=== PATIENT | female | born 1955 | race Caucasian/White ===

== ENCOUNTER 2017-01-12 14:49 | Emergency (ER) | payer OTHER ==
[2017-01-12 14:53] VITALS: TEMP 98.1; BMI 23.6
--- NOTE | 2017-01-12 16:03 | PDOC ---
History of Present Illness - General Chief Complaint: Lightheaded Stated Complaint: LIGHTHEADED Time Seen by Provider: 01/12/17 14:50 - History of Present Illness Initial Comments: 01/12/17 15:29 61 yo F with h/o opthalmic migraine, and anxiety who presents with lightheadedness. Pt. reports isolated episode of lightheadedness while standing in line at restaurant. This lasted for 10 seconds and was followed by anxiety related symptoms of palpitations, tachycardia, sweating, and tingling of distal upper extremities. She reports frequent panic attacks in the past and denies medication use. She denies LOC, dizziness, SOB, chest pain, or weakness. Following the period of lightheadedness she drank 48 oz of water, and 16 oz orange juice. In the morning she reports eating egg whites and drinking 16 oz ice coffee before her symptoms began. She endorses low carbohydrate diet. She is currently stable and no longer experiencing any symptoms. She states that she came to the ED because she did not feel safe at home d/t fear of rapid decline in health and being alone if she experienced another lightheaded event. Past History - Past Medical History Allergies/Adverse Reactions: Allergies Allergy/AdvReac Type Severity Reaction Status Date / Time No Known Allergies Allergy Verified 01/12/17 14:50 Home Medications: Ambulatory Orders Levothyroxine [Synthroid -] 50 mcg PO DAILY 08/18/13 Alprazolam [Xanax] 0.5 mg PO HS #14 tablet 08/19/15 Dextroamphetamine/Amphetamine [Adderall 10 mg Tablet] mg PO ASDIR 01/12/17 Psychiatric Problems: Yes (PANIC DISORDER) Thyroid Disease: Yes - Surgical History Appendectomy: Yes Cholecystectomy: Yes - Immunization History Immunization Up to Date: Yes - Psycho/Social/Smoking Cessation Hx Anxiety: Yes (PANIC ATTACKS) Suicidal Ideation: No Smoking Status: Yes Smoking History: Never smoked Years of Tobacco Use: 16 Have you smoked in the past 12 months: No Number of Cigarettes Smoked Daily: 0 Information on smoking cessation initiated: No Hx Alcohol Use: No Drug/Substance Use Hx: No Substance Use Type: None Review of Systems - Review of Systems Able to Perform ROS?: Yes Comments:: 01/12/17 16:03 GENERAL/CONSTITUTIONAL: No fever or chills. No weakness. HEAD, EYES, EARS, NOSE AND THROAT: No change in vision. No ear pain or discharge. No sore throat. CARDIOVASCULAR: No chest pain or shortness of breath RESPIRATORY: No cough, wheezing, or hemoptysis. GASTROINTESTINAL: No nausea, vomiting, diarrhea or constipation. GENITOURINARY: No dysuria, frequency, or change in urination. MUSCULOSKELETAL: No joint or muscle swelling or pain. No neck or back pain. SKIN: No rash NEUROLOGIC: No headache, vertigo, loss of consciousness, or change in strength/ sensation. ENDOCRINE: No increased thirst. No abnormal weight change HEMATOLOGIC/LYMPHATIC: No anemia, easy bleeding, or history of blood clots. ALLERGIC/IMMUNOLOGIC: No hives or skin allergy. *Physical Exam - Vital Signs Last Vital Signs Temp Pulse Resp BP Pulse Ox 98.1 F 116 H 20 130/88 98 01/12/17 14:50 01/12/17 14:50 01/12/17 14:50 01/12/17 14:50 01/12/17 14:50 - Physical Exam Comments: 01/12/17 16:03 GENERAL: Awake, alert, and fully oriented, in no acute distress HEAD: No signs of trauma, normocephalic, atraumatic EYES: PERRLA, EOMI, sclera anicteric, conjunctiva clear ENT: Auricles normal inspection, hearing grossly normal, nares patent, oropharynx clear without exudates. Moist mucosa NECK: Normal ROM, supple, no lymphadenopathy, JVD, or masses LUNGS: No distress, speaks full sentences, clear to auscultation bilaterally HEART: Regular rate and rhythm, normal S1 and S2, no murmurs, rubs or gallops, peripheral pulses normal and equal bilaterally. ABDOMEN: Soft, nontender, normoactive bowel sounds. No guarding, no rebound. No masses EXTREMITIES: Normal inspection, Normal range of motion, no edema. No clubbing or cyanosis. NEUROLOGICAL: Cranial nerves II through XII grossly intact. Normal speech, normal gait, no focal sensorimotor deficits SKIN: Warm, Dry, normal turgor, no rashes or lesions noted. Heart Score/ECG Review - Electrocardiogram EKG: Normal - Age Age: 45-65 - ECG Intrepretation Rhythm: Regular Rhythm - [place]: Normal - ECG Impressions Normal ECG: Yes Non-specific ST Elevation: No Ischemic Changes: No Bradycardia: No ED Treatment Course - LABORATORY CBC & Chemistry Diagram: 01/12/17 15:15 01/12/17 15:15 Medical Decision Making - Medical Decision Making 01/12/17 16:04 61 yo F with h/o anxiety who presents with lightheadedness. Pt. currently asymptomatic and stable. She was tachycardia on arrival to ED and denies any syncopal events. D/t pt. h/o panic attacks and absent physical exam findings it is likely that symptoms are related to anxiety. There is the possibility that she experienced transient hypoglycemia. She reports low carbohydrate intake and inadequate fluid hydration prior to onset of symptoms with resolution of symptoms following oral intake of sugars and fluids. Other potential causes of lightheadedness include dehydration, anemia, arrhythmia, electrolyte disturbance , infection. ED course: CBC CMP Trop EKG UA 01/12/17 16:26 CBC, CMP unremarkable EKG- unremarkable UA- unremarkable 01/12/17 16:42 Discharge home stable *DC/Admit/Observation/Transfer Diagnosis at time of Disposition: Lightheadedness - Discharge Dispostion Condition at time of disposition: Stable Admit: No - Patient Instructions Additional Instructions: Continue adequate fluid hydration and avoid prolonged periods of fasting. Print Language: THAI - Attestations Physician Attestion: 01/12/17 16:29 I, Dr. James Peña, attest that this document has been prepared under my direction and personally reviewed by me in its entirety. I further attest, that it accurately reflects all work, treatment, procedures and medical decision -making performed by me.
--- NOTE | 2017-01-12 16:07 | PDOC ---
Attending Attestation - Resident Resident Name: James Peña - ED Attending Attestation I have performed the following: I have examined & evaluated the patient, The case was reviewed & discussed with the resident, I agree w/resident's findings & plan, Exceptions are as noted - HPI HPI: 01/12/17 15:59 This is a 61 yo F with a history of hypothyroidism, panic attacks who presents to the ER with a complaint of lightheadedness Pt was in her usual state of health, had breakfast this morning, and coffee ( per usual) Pt was on line getting something to eat when she began to feel lightheadedness No chest pain, no palpitations No syncope No focal weakness She immediately drank 2 large containers of water (she figured that she was dehydrated), she had orange juice but she continued to feel lightheaded She drove herself here Pt states she feels like she is having a minor panic attack, she has had numbness of both finger tips (when she has a panic attack, she had numbness from the elbows to the finger tips) 01/12/17 16:03 - Physicial Exam PE: 01/12/17 16:03 RRR CTA Motor strength 5/5 in all extremities Sensation in tact CN II-XII in tact No abd tenderness to palpation - Medical Decision Making 01/12/17 16:04 Pt presents to the ER with lightheadedness DD: anemia, electrolyte abnormality, dehydration, Arrhythmia, ACS Will do labs Will hydrate Will re assess Laboratory Tests 01/12/17 01/12/17 01/12/17 15:10 15:10 15:15 WBC 4.6 Hgb 14.0 Hct 41.2 Plt Count 272 BUN Creatinine Creatine Kinase 118 Troponin I < 0.03 L Urine Appearance Clear Urine Nitrite Negative Ur Leukocyte Esterase 1+ H Urine RBC 2-4 Urine WBC 0-2 01/12/17 15:15 WBC Hgb Hct Plt Count BUN 17 Creatinine 0.6 Creatine Kinase Troponin I Urine Appearance Urine Nitrite Ur Leukocyte Esterase Urine RBC Urine WBC pt stable Will discharge to home Follow up with PMD Return to the ER for any other concerns or complaints
[2017-01-12 16:16] LABS: ALBUMIN 4.3 g/dl (3.5-5.0); ALK PHOS 54 U/L (32-92); ANION GAP 7 (8-16); BILIRUBIN,TOTAL 0.4 mg/dl (0.2-1.0); CALCIUM 9.3 mg/dl (8.4-10.2); CO2 25 mmol/L (22-28); CREATININE 0.6 mg/dl (0.6-1.3); GLUCOSE,RANDOM 111 mg/dl (74-106); SGOT/AST 23 U/L (10-42); SGPT/ALT 20 U/L (10-40); TOT PROT 6.8 g/dl (6.4-8.3)
[2017-01-12 16:17] LABS: BASOPHIL 0.9 % (0-2.0); EOSINOPHIL 1.6 % (0-4.5); MCH 32.3 pg (25.7-33.7); MCHC 34.1 g/dl (32.0-36.0); MEAN CELL VOLUME 94.8 fl (80-96); MEAN PLT VOLUME 9.2 fl (7.5-11.1); NEUTROPHILS 68.9 % (42.8-82.8); PLATELET COUNT 272 K/MM3 (134-434); RDW 12.4 % (11.6-15.6); WHITE BLOOD COUNT 4.6 K/mm3 (4.0-10.8)
[2017-01-12 16:17] LABS: URINE APPEARANCE Clear; URINE BILIRUBIN Negative (NEGATIVE); URINE BLOOD 1+ (NEGATIVE); URINE GLUCOSE (UA) Negative (NEGATIVE); URINE KETONE Negative (NEGATIVE); URINE NITRITE Negative (NEGATIVE); URINE PROTEIN Negative (NEGATIVE); URINE UROBILINOGEN 0.2 (0.2-1.0)
[2017-01-12 16:18] LABS: URINE COLOR YELLOW; URINE LEUK ESTERASE 1+ (NEGATIVE)
[2017-01-12 16:22] LABS: CPK(DFH) 118 IU/L (26-140)
[2017-01-12 16:39] LABS: TROPONIN I (DFP) < 0.03 ng/ml (0.03-0.50)
[2017-01-12 16:54] VITALS: BP 128/65; PULSE 89
[2017-01-12 17:47] LABS: URINE BACTERIA RARE /hpf (NEGATIVE); URINE WBC 0-2 (3-5)
--- NOTE | 2017-01-13 15:12 | EKG ---
Test Reason : Blood Pressure : / mmHG Vent. Rate : 098 BPM Atrial Rate : 098 BPM P-R Int : 194 ms QRS Dur : 076 ms QT Int : 346 ms P-R-T Axes : 064 041 047 degrees QTc Int : 441 ms NORMAL SINUS RHYTHM NORMAL ECG NO PREVIOUS ECGS AVAILABLE Confirmed by CHARLIE RENDON MD ([id number] on 01/13/2017 3:11:47 PM Referred By: MD MERCHANT Confirmed By:CHARLIE RENDON MD
== END 2017-01-12 16:54 | disposition home or self-care (01) ==
LOC: FER 14:49
DX: R42 Dizziness and giddiness (principal); F41.0 Panic disorder [episodic paroxysmal anxiety]
CPT/HCPCS: 36415; 80053; 81003; 81015; 82550; 84484; 85025; 93005; 99284-25

== ENCOUNTER 2017-02-05 13:54 | Emergency (ER) | payer OTHER ==
[2017-02-05 13:58] VITALS: BP 146/97; TEMP 97.4; BMI 23.1
--- NOTE | 2017-02-05 14:50 | PDOC ---
History of Present Illness - General History Source: Patient, Old Records Exam Limitations: No Limitations <JanetteOdette - Last Filed: 02/05/17 14:48> - General History Source: Patient Exam Limitations: No Limitations - History of Present Illness Initial Comments: 02/05/17 14:51 The patient is a 61 yo F with a history of hypothyroidism, panic attacks who presents to the ER with throat irritation. Patient states she ate a walnut earlier today when she felt like something was irritating her throat. She states she drank a lot of water, and ate bread w/ butter after, but the throat irritation persisted. She denies eating any type of meats. She denies any allergies. She denies having allergy symptoms to nuts in the past. <Ricardo Patricia - Last Filed: 02/05/17 15:15> - General Chief Complaint: Choking Sensation Stated Complaint: SOMETHING STUCK IN MY THROAT Time Seen by Provider: 02/05/17 14:38 Past History - Past Medical History Psychiatric Problems: Yes (PANIC DISORDER) Thyroid Disease: Yes - Surgical History Appendectomy: Yes Cholecystectomy: Yes - Immunization History Immunization Up to Date: Yes - Psycho/Social/Smoking Cessation Hx Anxiety: Yes (PANIC ATTACKS) Suicidal Ideation: No Smoking Status: Yes Smoking History: Never smoked Years of Tobacco Use: 16 Have you smoked in the past 12 months: No Number of Cigarettes Smoked Daily: 0 Hx Alcohol Use: No Drug/Substance Use Hx: No Substance Use Type: None <Odette Savage - Last Filed: 02/05/17 14:48> <Ricardo Patricia - Last Filed: 02/05/17 15:15> - Past Medical History Allergies/Adverse Reactions: Allergies Allergy/AdvReac Type Severity Reaction Status Date / Time No Known Allergies Allergy Verified 02/05/17 13:55 Home Medications: Ambulatory Orders Levothyroxine [Synthroid -] 50 mcg PO DAILY 08/18/13 Alprazolam [Xanax] 0.5 mg PO HS #14 tablet 08/19/15 Dextroamphetamine/Amphetamine [Adderall 10 mg Tablet] 0 mg PO ASDIR 01/12/17 Review of Systems - Review of Systems Able to Perform ROS?: Yes Comments:: 02/05/17 14:52 GENERAL/CONSTITUTIONAL: No fever or chills. No weakness. HEAD, EYES, EARS, NOSE AND THROAT: + throat irritation. No change in vision. No ear pain or discharge. CARDIOVASCULAR: No chest pain or shortness of breath. RESPIRATORY: No cough, wheezing, or hemoptysis. GASTROINTESTINAL: No nausea, vomiting, diarrhea or constipation. GENITOURINARY: No dysuria, frequency, or change in urination. MUSCULOSKELETAL: No joint or muscle swelling or pain. No neck or back pain. SKIN: No rash NEUROLOGIC: No headache, vertigo, loss of consciousness, or change in strength/ sensation. ENDOCRINE: No increased thirst. No abnormal weight change. HEMATOLOGIC/LYMPHATIC: No anemia, easy bleeding, or history of blood clots. ALLERGIC/IMMUNOLOGIC: No hives or skin allergy. <Ricardo Patricia - Last Filed: 02/05/17 15:15> *Physical Exam - Vital Signs Last Vital Signs Temp Pulse Resp BP Pulse Ox 97.4 F L 110 H 16 146/97 100 02/05/17 13:55 02/05/17 13:55 02/05/17 13:55 02/05/17 13:55 02/05/17 13:58 <Odette Savage - Last Filed: 02/05/17 14:48> - Vital Signs Last Vital Signs Temp Pulse Resp BP Pulse Ox 97.4 F L 110 H 16 146/97 100 02/05/17 13:55 02/05/17 13:55 02/05/17 13:55 02/05/17 13:55 02/05/17 13:58 - Physical Exam Comments: 02/05/17 14:52 GENERAL: Awake, alert, and fully oriented, in no acute distress HEAD: No signs of trauma EYES: PERRLA, EOMI, sclera anicteric, conjunctiva clear ENT: No swelling of lip or tongue or uvula. No foreign bodies witnessed. Auricles normal inspection, hearing grossly normal, nares patent, oropharynx clear without exudates. Moist mucosa NECK: Normal ROM, supple, no lymphadenopathy, JVD, or masses LUNGS: Breath sounds equal, clear to auscultation bilaterally. No wheezes, and no crackles HEART: Regular rate and rhythm, normal S1 and S2, no murmurs, rubs or gallops ABDOMEN: Soft, nontender, normoactive bowel sounds. No guarding, no rebound. No masses EXTREMITIES: Normal range of motion, no edema. No clubbing or cyanosis. No cords, erythema, or tenderness NEUROLOGICAL: Cranial nerves II through XII grossly intact. Normal speech, normal gait SKIN: Warm, Dry, normal turgor, no rashes or lesions noted. <Ricardo Patricia - Last Filed: 02/05/17 15:15> Medical Decision Making - Medical Decision Making 02/05/17 14:48 7-year-old female with history of thyroid disease presents the emergency Department with complaints of foreign body sensation in the esophagus however she is able to tolerate solids and liquids, is saturating well and has no stridor or wheezing on physical exam as well as no swelling of the lips tongue or uvula. Differential diagnosis includes but is not limited to: Esophageal spasm, esophageal irritation, esophageal web. Plan: 1. Observe and reevaluate 2. Referred to primary care physician if symptoms recur or the patient may return to the emergency department if symptoms persist, worsen, or new symptoms arise. <Odette Savage - Last Filed: 02/05/17 14:48> *DC/Admit/Observation/Transfer - Discharge Dispostion Admit: No - Attestations Physician Attestion: 02/05/17 14:49 I, Dr. Odette Savage, attest that the scribes documentation that appears above has been prepared under my direction and personally reviewed by me in its entirety. I confirmed that the note above accurately reflects all work, treatment, procedures, and medical decision-making performed by me. <Odette Savage - Last Filed: 02/05/17 14:48> - Attestations Scribe Attestion: 02/05/17 15:15 Documentation prepared by Ricardo Patricia, acting as medical scientist for Odette Savgae MD, MD. <Ricardo Patricia - Last Filed: 02/05/17 15:15> Diagnosis at time of Disposition: Dysphagia - Discharge Dispostion Disposition: HOME Condition at time of disposition: Stable - Patient Instructions Printed Discharge Instructions: DI for Esophageal Dysphagia Additional Instructions: Please follow-up with your primary care physician within the next 1-3 days and return to the emergency department if your symptoms persist, worsen, or new symptoms arise.
[2017-02-05 15:24] VITALS: PULSE 83
== END 2017-02-05 15:25 | disposition home or self-care (01) ==
LOC: FER 13:54
DX: R13.10 Dysphagia, unspecified (principal); E03.9 Hypothyroidism, unspecified; F41.0 Panic disorder [episodic paroxysmal anxiety]
CPT/HCPCS: 99282-25

== ENCOUNTER 2017-07-15 19:55 | Emergency (ER) | payer OTHER ==
[2017-07-15 20:05] VITALS: BP 100/70; TEMP 97.9; BMI 25.7
--- NOTE | 2017-07-15 20:38 | PDOC ---
History of Present Illness - General History Source: Patient Exam Limitations: No Limitations - History of Present Illness Initial Comments: 07/15/17 21:00 A portion of this note was documented by scribe services under my direction. I have reviewed the details of the note, within reason, and agree with the documentation. The case summary and management plan written by me. Assessment and plan: This is a 61 -year-old female who comes in complaining of acid reflux after eating a large amount of food. Patient has history of similar symptoms in the past but hasn't had any for quite some time. Patient also has a history of panic and anxiety disorder. Patient said that she became very anxious and had a panic attack because she was concerned about the discomfort. Patient took some antacids and by the time she got to the emergency room her symptoms had almost completely resolved. Here in the emergency room patient had a completely normal exam with no tenderness and the stated she was feeling much better. Patient was observed in the emergency room for approximately an hour and a half with no return of her symptoms and progressively felt better. Patient discharged home with her and told to follow-up with her primary care doctor. <Jeffrey Marina I - Last Filed: 07/15/17 21:00> - General History Source: Patient Exam Limitations: No Limitations - History of Present Illness Initial Comments: 07/15/17 21:10 The patient is a year old female, with a significant past medical history of hypothyroidism, panic attacks, who presents to the emergency department with, burning in her epigastric region and discomfort. As per patient, she believes she had overeaten prior to her epigastric burning. She reports taking Zantac, with relief. Secondary to her symptoms, she reports to have had a panic attack and became diaphoretic. She reports her symptoms have subsided since arriving to the ED. She denies recent fevers, chills, headache or dizziness. She denies recent nausea, vomit, diarrhea or constipation. She denies recent dysuria, frequency, urgency or hematuria. She denies recent chest pain or shortness of breath. PAST MEDICAL HISTORY: no significant history PAST SURGICAL HISTORY: no significant history FAMILY HISTORY: no pertinent history SOCIAL HISTORY: Pt lives with family and is employed. MEDICATIONS: reviewed ALLERGIES: As per nursing notes ROS: General: No fevers or chills, no weakness, no weight loss HEENT: No change in vision. No sore throat,. No ear pain CardioVascular: No chest pain or shortness of breath Respiratory:No cough, or wheezing. Gastrointestinal: no nausea, vomiting, diarrhea or constipation, No rectal bleeding Genitourinary: No dysuria, hematuria, or frequency Musculoskeletal: No joint or muscle pain or swelling Neurologic: No headache, vertigo, dizziness or loss of consciousness Psychiatric: nor depression Skin: No rashes or easy bruising Endocrine: no increased thirst or abnormal weight change Allergic: no skin or latex allergy All other systems reviewed and normal Physical Exam: General: Well-nourished well-developed individual, no acute distress HEENT: Throat: Normal, tonsils normal, no erythema or exudate Neck: Supple, no meningeal signs, no lymphadenopathy Eyes::Pupils equal reactive and round, extraocular motion intact Chest: Nontender to palpation Cardiac: S1-S2 normal, regular rate and rhythm, no murmurs rubs or gallops Respiratory: Lungs clear to auscultation bilateral Abdomen: Soft, nondistended, normal bowel sounds, nontender to palpation diffusely Extremities: Warm, dry, no cyanosis, clubbing, or edema Skin: No rashes Neuro: Alert and oriented x3, nonfocal exam, grossly intact, normal gait Psych: Normal mood and affect <Portillo Martinez - Last Filed: 07/15/17 21:10> - General Chief Complaint: Pain, Acute Stated Complaint: "STOMACH BURNING UP TO CHEST" Time Seen by Provider: 07/15/17 20:15 Past History - Past Medical History COPD: No Psychiatric Problems: Yes (PANIC DISORDER) Thyroid Disease: Yes Other medical history: SCIATICA - Surgical History Appendectomy: Yes Cholecystectomy: Yes - Immunization History Immunization Up to Date: Yes - Suicide/Smoking/Psychosocial Hx Smoking Status: Yes Smoking History: Never smoked Years of Tobacco Use: 16 Have you smoked in the past 12 months: No Number of Cigarettes Smoked Daily: 0 Information on smoking cessation initiated: No Hx Alcohol Use: No Drug/Substance Use Hx: No Substance Use Type: None <Jeffrey Marina I - Last Filed: 07/15/17 21:00> <Portillo Martinez - Last Filed: 07/15/17 21:10> - Past Medical History Allergies/Adverse Reactions: Allergies Allergy/AdvReac Type Severity Reaction Status Date / Time No Known Allergies Allergy Verified 07/15/17 19:57 Home Medications: Ambulatory Orders Levothyroxine [Synthroid -] 50 mcg PO DAILY 08/18/13 Dextroamphetamine/Amphetamine [Adderall 10 mg Tablet] 0 mg PO ASDIR 01/12/17 Alprazolam [Xanax] 0.5 mg PO ASDIR PRN 07/15/17 Ranitidine HCl [Zantac] mg PO ASDIR 07/15/17 *Physical Exam - Vital Signs Last Vital Signs Temp Pulse Resp BP Pulse Ox 97.9 F 108 H 20 100/70 97 07/15/17 19:55 07/15/17 19:55 07/15/17 19:55 07/15/17 19:55 07/15/17 19:55 <Jeffrey Marina I - Last Filed: 07/15/17 21:00> - Vital Signs Last Vital Signs Temp Pulse Resp BP Pulse Ox 97.9 F 108 H 20 100/70 97 07/15/17 19:55 07/15/17 19:55 07/15/17 19:55 07/15/17 19:55 07/15/17 19:55 <Portillo Martinez - Last Filed: 07/15/17 21:10> *DC/Admit/Observation/Transfer - Discharge Dispostion Admit: No <Jeffrey Marina I - Last Filed: 07/15/17 21:00> - Attestations Scribe Attestion: 07/15/17 21:10 Documentation prepared by Portillo Martinez, acting as medical billing and coding instructor for Jeffrey Marina MD. <Portillo Martinez - Last Filed: 07/15/17 21:10> Diagnosis at time of Disposition: Acid reflux disease, Anxiety - Discharge Dispostion Disposition: HOME Condition at time of disposition: Stable - Patient Instructions Additional Instructions: Return to the emergency department immediately with ANY new, persistent or worsening symptoms. Continue any medications as previously prescribed by your physician. You should follow up with your primary doctor as soon as possible regarding today's emergency department visit. . Please make sure your doctor reviews the results of your emergency evaluation. Thank you for coming to the Emergency Department today for your care. It was a pleasure to see you today. Please note that your evaluation is INCOMPLETE until you follow-up with your doctor.
[2017-07-15] MEDS ORDERED: MAG HYDROX/AL HYDROX/SIMETH 30 ML UNIT-DOSE CUP PO ONE (21:01)
[2017-07-15] MEDS ORDERED: MAG HYDROX/AL HYDROX/SIMETH 30 ML UNIT-DOSE CUP ONE (21:08)
[2017-07-15 21:12] VITALS: PULSE 89
--- NOTE | 2017-07-16 08:50 | EKG ---
Test Reason : Blood Pressure : / mmHG Vent. Rate : 102 BPM Atrial Rate : 102 BPM P-R Int : 180 ms QRS Dur : 084 ms QT Int : 346 ms P-R-T Axes : 052 047 042 degrees QTc Int : 450 ms SINUS TACHYCARDIA ABNORMAL ECG WHEN COMPARED WITH ECG OF 12-JAN-2017 15:16, NO SIGNIFICANT CHANGE WAS FOUND Confirmed by Anish Low ([id number]) on 07/16/2017 8:50:33 AM Referred By: DARIO LAW Confirmed By:Anish Low
== END 2017-07-15 21:20 | disposition home or self-care (01) ==
LOC: FER 19:55
DX: K21.9 Gastro-esophageal reflux disease without esophagitis (principal); F41.8 Other specified anxiety disorders; E07.9 Disorder of thyroid, unspecified
CPT/HCPCS: 93005; 99284-25

== ENCOUNTER 2020-09-10 20:42 | Emergency (ER) | payer BC, OTHER ==
[2020-09-10 20:57] VITALS: BP 1/1; BMI 25.7
[2020-09-10] MEDS ORDERED: LORazepam 2 MG TABLET PO ONE (21:26)
[2020-09-10] MEDS ORDERED: LORazepam 0.5 MG TABLET ONE (21:27)
== END 2020-09-10 21:34 | disposition home or self-care (01) ==
LOC: FER 20:42
DX: F41.1 Generalized anxiety disorder (principal)
CPT/HCPCS: 93005; 99283-25

== ENCOUNTER 2023-08-11 18:58 | Emergency (ER) | payer OTHER, BC ==
[2023-08-11 19:17] VITALS: BP 150/87; TEMP 97.8; BMI 25.7
[2023-08-11] MEDS: SODIUM CHLORIDE 1,000 ML IV ONE (19:33)
[2023-08-11 19:50] LABS: HEMATOCRIT 43.4 % (32.4-45.2); MCH 33.6 pg (25.7-33.7); MCHC 34.6 g/dl (32.0-36.0); MEAN CELL VOLUME 97.2 fl (80-96); MEAN PLT VOLUME 8.8 fl (7.5-11.1); PLATELET COUNT 282.2 10^3/uL (134-434); RBC 4.47 10^6/uL (3.60-5.2); RDW 13.5 % (11.6-15.6); WHITE BLOOD COUNT 6.4 10^3/uL (4.0-10.8)
[2023-08-11 20:09] LABS: ALBUMIN 4.4 g/dl (3.4-5.0); BILIRUBIN,TOTAL 0.6 mg/dl (0.2-1); CALCIUM 10.1 mg/dl (8.5-10.1); CREATININE 0.7 mg/dl (0.6-1.3); MAGNESIUM 1.5 mg/dL (1.8-2.4); POTASSIUM 3.9 mmol/L (3.5-5.1)
[2023-08-11 20:42] VITALS: PULSE 90; RESP 12
[2023-08-11] MEDS: MAGNESIUM OXIDE 400 MG TABLET (FP) PO ONE (21:28)
== END 2023-08-11 21:29 | disposition home or self-care (01) ==
LOC: FER 18:58
PROC: 3E0337Z Introduction of Electrolytic and Water Balance Substance into Peripheral Vein, Percutaneous Approach (ICD-10-PCS; principal; 2023-08-11)
DX: R00.2 Palpitations (principal); R61 Generalized hyperhidrosis
CPT/HCPCS: 36415; 80053; 82550; 83735; 84100; 84443; 84484; 85027; 85379; 93005; 99284-25

== ENCOUNTER 2024-08-09 10:22 | Emergency (ER) | payer OTHER, BC ==
[2024-08-09 10:45] VITALS: BP 125/100; PULSE 106; RESP 16; TEMP 98.8; BMI 25.7
== END 2024-08-09 12:43 | disposition home or self-care (01) ==
LOC: FER 10:22
DX: J10.1 Influenza due to other identified influenza virus with other respiratory manifestations (principal); R05.9 Cough, unspecified; R50.9 Fever, unspecified; Z20.822 Contact with and (suspected) exposure to COVID-19
CPT/HCPCS: 0241U-QW; 71046-TC-FY; 99284-25

== ENCOUNTER 2024-11-19 01:57 | Emergency (ER) | payer OTHER, BC ==
[2024-11-19 02:03] VITALS: BP 136/85; PULSE 67; RESP 18; TEMP 97.7; BMI 26.2
[2024-11-19] MEDS ORDERED: ONDANSETRON 4 MG/2 ML VIAL ONE (02:44)
[2024-11-19] MEDS: ONDANSETRON 4 MG/2 ML VIAL IVPUSH ONE (02:55)
[2024-11-19 03:09] LABS: BASOPHILS # 0.01 x10^3/uL (0.01-0.08); EOSINOPHIL % 4.2 % (0.7-5.8); EOSINOPHILS # 0.21 x10^3/uL (0.04-0.36); HEMATOCRIT 41.4 % (34.1-44.9); HEMOGLOBIN 14.1 g/dL (11.2-15.7); MCHC 34.1 g/dl (32.2-35.5); MEAN CELL VOLUME 95.8 fl (79.4-94.8); MEAN PLT VOLUME 11.5 fl (9.4-12.3); MONOCYTE # 0.33 x10^3/uL (0.24-0.86); MONOCYTE % 6.7 % (4.7-12.5); PLATELET COUNT 224 x10^3/uL (182-369); RDW 12.4 % (12.4-16.4)
[2024-11-19 03:17] LABS: INR 0.96 (0.83-1.09); PROTHROMBIN TIME (PATIENT) 10.5 SEC (9.7-13.0)
[2024-11-19] MEDS ORDERED: FAMOTIDINE 20 MG/50 ML IVPB 20 MG/50 ML MG IVPB ONE (03:34)
[2024-11-19] MEDS: FAMOTIDINE 20 MG/50 ML IVPB 20 MG/50 ML MG IVPB ONE (03:40)
[2024-11-19 03:50] LABS: POTASSIUM 4.1 mmol/L (3.5-5.1)
[2024-11-19 03:53] LABS: CALCIUM 9.5 mg/dL (8.5-10.1)
[2024-11-19 03:54] LABS: ALBUMIN 3.7 g/dl (3.4-5.0)
[2024-11-19 03:57] LABS: CREATININE 0.6 mg/dL (0.55-1.3)
[2024-11-19 03:59] LABS: BILIRUBIN,TOTAL 0.4 mg/dL (0.2-1); TOT PROT 6.7 g/dl (6.4-8.2)
[2024-11-19 04:21] LABS: EPI CELLS 3 /uL (0-25.1); HYALINE CASTS 0 /uL (0-3.1); URINE APPEARANCE CLEAR; URINE BACTERIA 16 /uL (0-1359); URINE BILIRUBIN NEGATIVE (NEGATIVE); URINE COLOR YELLOW; URINE GLUCOSE (UA) NEGATIVE (NEGATIVE); URINE KETONE NEGATIVE (NEGATIVE); URINE LEUK ESTERASE TRACE (NEGATIVE); URINE NITRITE NEGATIVE (NEGATIVE); URINE PROTEIN NEGATIVE (NEGATIVE); URINE RBC 15 /uL (0-23.9); URINE UROBILINOGEN 0.2 mg/dL (0.2-1.0); URINE WBC 4 /uL (0-25.8)
== END 2024-11-19 05:11 | disposition home or self-care (01) ==
LOC: FER 01:57
PROC: 3E033GC Introduction of Other Therapeutic Substance into Peripheral Vein, Percutaneous Approach (ICD-10-PCS; principal; 2024-11-19)
PROC: 3E033GC Introduction of Other Therapeutic Substance into Peripheral Vein, Percutaneous Approach (ICD-10-PCS; 2024-11-19)
DX: K21.9 Gastro-esophageal reflux disease without esophagitis (principal); K29.00 Acute gastritis without bleeding; R10.13 Epigastric pain; R11.0 Nausea
CPT/HCPCS: 36415; 80053; 81003; 83690; 84484; 85025; 85610; 93005; 99284-25